=== PATIENT | male | born 1960 | race African-American/Black ===

== ENCOUNTER 2020-04-21 22:32 | Emergency (ER) | payer OTHER ==
[~2020-04-21] VITALS: Ht 172.7 cm; Wt 77.0 kg
[2020-04-22] MEDS ORDERED: LIDOCAINE HCL 1% 20ML VIAL (Pyxis) INJ INFIL ONE
[2020-04-22 01:01] VITALS: BP 109/66
== END 2020-04-22 01:04 | disposition home or self-care (01) ==
LOC: ER 22:32
DX: S61.412A Laceration without foreign body of left hand, initial encounter (principal); S61.217A Laceration without foreign body of left little finger without damage to nail, initial encounter; S61.213A Laceration without foreign body of left middle finger without damage to nail, initial encounter; X99.1XXA Assault by knife, initial encounter; Y93.89 Activity, other specified; Y92.89 Other specified places as the place of occurrence of the external cause
CPT/HCPCS: 12004; 73130; 99284; J3490